=== PATIENT | female | born 1985 | race Caucasian/White ===

== ENCOUNTER → 2019-05-31 14:56 | Day surgery (SDC) | payer SELFPAY ==
[2019-05-31 09:06] LABS: Absolute Lymphocytes (CBC) 3.1 K/uL (0.7-4.9); Hematocrit 39.8 % (36.0-45.0); Lymphocytes % 46.2 % (15.3-44.8); MPV 9.9 fL (7.6-11.3); RBC Red Blood Cell Count 4.43 M/uL (3.86-4.86)
[2019-05-31 09:07] LABS: BUN Blood Urea Nitrogen 10 mg/dL (7-18); Bicarbonate 30 mmol/L (21-32); Glucose Level 100 mg/dL (74-106); Potassium 4.1 mmol/L (3.5-5.1); Sodium Level 141 mmol/L (136-145)
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
[2019-05-31 12:50] LABS: Urine Blood NEGATIVE (NEG); Urine Glucose NEGATIVE (NEG); Urine Protein NEGATIVE (NEG); Urine Specific Gravity 1.015 (1.005-1.030)
[2019-05-31 14:40] VITALS: BP 101/52; TEMP 98.4; O2SAT 99
[~2019-05-31 14:56] MED LIST: CEFAZOLIN/SWI 1gm 1 GM/10 ML SYR ONE; FENTANYL CITR 100 MCG/2 ML ONE; KETOROLAC 30 MG/ML INJ ONE; LIDOCAINE 1% MPF 5 ML VIAL ONE; LIDOCAINE 1% W/EPI 1:100,000 MDV 20 ML VIAL ONE; LIDOCAINE 2% MPF 5 ML VIAL ONE; MEPERIDINE HCL 25 MG/0.5 ML ONE; MIDAZOLAM HCL 2 MG/2 ML INJ ONE; NA CHLORIDE 0.9% 1,000 ML ONE; NA CIT/CITRIC AC 30 ML ORAL UDC ONE; ONDANSETRON 4 MG/2 ML VIAL ONE; PROPOFOL 200 MG/20 ML VIAL IV ONE
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
== END | disposition home or self-care (01) ==
LOC: ER 08:21 → OR 14:55 → EDSTATUS 16:03
PROVIDERS: ATTEND Emergency Medicine
PROC: 0JQ13ZZ Repair Face Subcutaneous Tissue and Fascia, Percutaneous Approach (ICD-10-PCS; principal; 2019-05-31 12:00)
DX: S01.122A Laceration with foreign body of left eyelid and periocular area, initial encounter (principal); S01.82XA Laceration with foreign body of other part of head, initial encounter; V49.9XXA Car occupant (driver) (passenger) injured in unspecified traffic accident, initial encounter; Y92.410 Unspecified street and highway as the place of occurrence of the external cause; F17.210 Nicotine dependence, cigarettes, uncomplicated
CPT/HCPCS: 36415; 70450; 80048; 81003; 81025; 85025; 96374; 96375; 99285; J0690; J2175; J2250; J2405; J2704; J3010; J7030

== ENCOUNTER 2024-04-08 12:25 | Emergency (ER) | payer SELFPAY ==
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
[2024-04-08 15:42] VITALS: BP 128/83; TEMP 97.3; O2SAT 99
== END 2024-04-08 14:09 | disposition home or self-care (01) ==
LOC: ER 12:25
DX: T76.21XA Adult sexual abuse, suspected, initial encounter (principal)

== ENCOUNTER 2024-04-30 11:41 | Emergency (ER) | payer SELFPAY ==
--- NOTE | 2024-04-30 12:36 | ER ---
Nurse's Notes [facility] Name: Ping Amaya Age: 38 yrs Sex: Female : 1985 Arrival Date: 04/30/2024 Time: 11:41 Bed 9 Private MD: Diagnosis: Chest pain, lipoma Presentation: 04/30 11:55 Chief complaint: Patient states: I have a mass in my chest and it's causing a lot of iw pain and it's hard to use my left arm and my lower back and hip are hurting , and I have a bacterial vaginal infection since october , was seen at a hospital 14 months ago and that's when they did an xray. Coronavirus screen: At this time, the client does not indicate any symptoms associated with coronavirus-19. Initial Sepsis Screen: Does the patient meet any 2 criteria? No. Patient's initial sepsis screen is negative. Does the patient have a suspected source of infection? No. Patient's initial sepsis screen is negative. Risk Assessment: Do you want to hurt yourself or someone else? Patient reports no desire to harm self or others. 11:55 Method Of Arrival: Ambulatory iw 11:55 Acuity: LAKSHMI 3 iw 13:02 Ebola Screen: Patient denies travel to an Ebola-affected area in the 21 days before ll1 illness onset. Onset of symptoms was April 30, 2024. 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 - Infectious Disease History:: Denies. - Social history:: Smoking status: Patient reports the use of cigarette tobacco products. Screenin:29 [facility] ED Fall Risk Assessment (Adult) History of falling in the last 3 months, ll1 including since admission No falls in past 3 months (0 pts) Confusion or Disorientation No (0 pts) Intoxicated or Sedated No (0 pts) Impaired Gait No (0 pts) Mobility Assist Device Used Yes (1 pt) Altered Elimination No (0 pt) Score/Fall Risk Level 0 - 2 = Low Risk Maintained a safe environment, Hourly rounding (assess needs \T\ fall precautionary measures) done. Abuse screen: Denies threats or abuse. Nutritional screening: No deficits noted. Tuberculosis screening: No symptoms or risk factors identified. Assessment: 12:28 General: Appears uncomfortable, Behavior is calm, cooperative, appropriate for age. ll1 Pain: Complains of pain in L side of body Quality of pain is described as aching. Cardiovascular: Reports chest pain. Musculoskeletal: Reports pain in L side of body. 13:02 Reassessment: No changes from previously documented assessment. Patient and/or family ll1 updated on plan of care and expected duration. Pain level reassessed. Patient is alert, oriented x 3, equal unlabored respirations, skin warm/dry/pink. 13:03 Pain: Pain does not radiate. Pain began 2 hours ago. ll1 Vital Signs: 11:57 BP 137 / 79; Pulse 95; Resp 16; Temp 97.9; Pulse Ox 98% on R/A; Pain 6/10; iw 13:02 BP 119 / 67; Pulse 83; Resp 17; Pulse Ox 98% on R/A; ll1 11:57 Pain Scale: Adult iw ED Course: 11:45 Patient arrived in ED. sj2 11:57 Triage completed. iw 11:58 Arm band placed on. iw 12:06 Cj Viveros MD is Attending Physician. sp3 12:12 Jorje Mcnamara, CRISTELA is Primary Nurse. ll1 12:12 Patient placed in an exam room, on a stretcher. ll1 12:29 XRAY Chest (1 view) Sent. ll1 12:30 Patient has correct armband on for positive identification. Bed in low position. ll1 Provided Education on: ER procedures and process. Cardiac monitoring not applicable on this patient. 12:35 XRAY Chest (1 view) In Process Unspecified. EDMS 13:02 No provider procedures requiring assistance completed. Patient did not have IV access ll1 during this emergency room visit. Patient maintains SpO2 saturation greater than 95% on room air. Administered Medications: No medications were administered Medication: 13:03 VIS not applicable for this client. ll1 Outcome: 12:36 Discharge ordered by . sp3 13:02 Discharged to home ambulatory, ll1 13:02 Condition: stable 13:02 Discharge instructions given to patient, Instructed on discharge instructions, follow up and referral plans. Demonstrated understanding of instructions, follow-up care, 13:03 Patient left the ED. ll1 Signatures: Dispatcher [employer] Baylee Curtis RN RN iw Lewis, Lynsay, RN RN ll1 Cj Viveros MD MD sp3 Gilberto Montez2
--- NOTE | 2024-04-30 12:36 | EDPHYS ---
Physician Documentation [facility] Name: Ping Amaya Age: 38 yrs Sex: Female : 1985 Arrival Date: 04/30/2024 Time: 11:41 Bed 9 Private MD: ED Physician Cj Viveros HPI: 04/30 12:23 This 38 yrs old Female presents to ER via Ambulatory with complaints of Chest Pain, Arm sp3 Pain. 12:23 38-year-old female with history of seasonal allergies presents with sharp chest pain on sp3 and off for a week. Patient states that she was in the ICU admitted and then checked herself out and she cannot communicate as to why she was admitted. She then states that she had "a mass on her back that needed to be ultrasounded" but she left prior to that being looked at. This was over a month ago. She denies any shortness of breath, fever, cough, abdominal pain, low back pain, syncope, near syncope, bleeding, or any other signs or symptoms on ROS at this time.. 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 - Infectious Disease History:: Denies. - Social history:: Smoking status: Patient reports the use of cigarette tobacco products. ROS: 12:24 Constitutional: Negative for fever, chills, and weight loss, Eyes: Negative for injury, sp3 pain, redness, and discharge, ENT: Negative for injury, pain, and discharge, Neck: Negative for injury, pain, and swelling, Respiratory: Negative for shortness of breath, cough, wheezing, and pleuritic chest pain, Abdomen/GI: Negative for abdominal pain, nausea, vomiting, diarrhea, and constipation, MS/Extremity: Negative for injury and deformity, Skin: Negative for injury, rash, and discoloration, Neuro: Negative for headache, weakness, numbness, tingling, and seizure, Psych: Negative for depression, anxiety, suicide ideation, homicidal ideation, and hallucinations, Allergy/Immunology: Negative for hives, rash, and allergies, Endocrine: Negative for neck swelling, polydipsia, polyuria, polyphagia, and marked weight changes, Hematologic/Lymphatic: Negative for swollen nodes, abnormal bleeding, and unusual bruising, 12:24 All other systems are negative, Exam: 12:25 Constitutional: This is a well developed, well nourished patient who is awake, alert, sp3 and in no acute distress. Head/Face: Normocephalic, atraumatic. Eyes: Pupils equal round and reactive to light, extra-ocular motions intact. Lids and lashes normal. Conjunctiva and sclera are non-icteric and not injected. Cornea within normal limits. Periorbital areas with no swelling, redness, or edema. Neck: Trachea midline, no thyromegaly or masses palpated, and no cervical lymphadenopathy. Supple, full range of motion without nuchal rigidity, or vertebral point tenderness. No Meningismus. Chest/axilla: Normal chest wall appearance and motion. Nontender with no deformity. No lesions are appreciated. Cardiovascular: Regular rate and rhythm with a normal S1 and S2. No gallops, murmurs, or rubs. Normal PMI, no JVD. No pulse deficits. Respiratory: Lungs have equal breath sounds bilaterally, clear to auscultation and percussion. No rales, rhonchi or wheezes noted. No increased work of breathing, no retractions or nasal flaring. Abdomen/GI: Soft, non-tender, with normal bowel sounds. No distension or tympany. No guarding or rebound. No evidence of tenderness throughout. Skin: Warm, dry with normal turgor. Normal color with no rashes, no lesions, and no evidence of cellulitis. MS/ Extremity: Pulses equal, no cyanosis. Neurovascular intact. Full, normal range of motion. Neuro: Awake and alert, GCS 15, oriented to person, place, time, and situation. Cranial nerves II-XII grossly intact. Motor strength 5/5 in all extremities. Sensory grossly intact. Cerebellar exam normal. Normal gait. Psych: Awake, alert, with orientation to person, place and time. Behavior, mood, and affect are within normal limits. 12:25 Back: Possible small swelling lateral to the spine consistent with lipoma. Nonpainful., 12:34 ECG was reviewed by the Attending Physician. EKG demonstrates normal sinus rhythm at 82 sp3 bpm with normal intervals, normal QRS, normal axis, normal ST's ST segments without evidence of acute ischemia. Vital Signs: 11:57 BP 137 / 79; Pulse 95; Resp 16; Temp 97.9; Pulse Ox 98% on R/A; Pain 6/10; iw 13:02 BP 119 / 67; Pulse 83; Resp 17; Pulse Ox 98% on R/A; ll1 11:57 Pain Scale: Adult iw MDM: 12:06 Medical Screening Exam initiated sp3 12:27 Data reviewed: vital signs, nurses notes, EKG, radiologic studies. ED course: sp3 30-year-old female with chest pain and possible lipoma on her back. Patient is in no acute distress resting comfortably and vital signs are normal. I believe pain is musculoskeletal in origin I am not highly suspicious for ACS, PE, TAD, GI symptoms, or any other critical pathology. Will obtain chest x-ray and EKG to affirm. If negative patient can follow-up with her PCP regarding possible lipoma workup as there is no emergency currently if workup is negative.. 12:35 ED course: EKG and chest x-ray are normal. We will safely discharge patient home at 3 this time.. 04/30 12:07 Order name: XRAY Chest (1 view); Complete Time: 12:47 sp3 04/30 12:07 Order name: EKG; Complete Time: 12:07 sp3 04/30 12:07 Order name: EKG - Nurse/Tech; Complete Time: 12:29 sp3 Administered Medications: No medications were administered Disposition Summary: 04/30/24 12:36 Discharge Ordered Notes: Location: Home sp3 Condition: Stable sp3 Diagnosis - Chest pain, lipoma sp3 Followup: sp3 - With: Private Physician - When: Upon discharge from the Emergency Department - Reason: Continuance of care Discharge Instructions: - Discharge Summary Sheet sp3 - Nonspecific Chest Pain, Adult sp3 - Lipoma sp3 Forms: - Medication Reconciliation Form sp3 - Antibiotic Education sp3 - Prescription Opioid Use sp3 - Patient Portal Instructions sp3 - Leadership Thank You Letter sp3 Signatures: Dispatcher [employer] EDBaylee Guidry RN RN iw Viveros, Setul, MD MD sp3
--- NOTE | 2024-04-30 12:45 | RAD REPORT ---
EXAMINATION: ONE VIEW CHEST XR CLINICAL INDICATION: Female, 38 years old.CHEST PAIN TECHNIQUE: 1 View, AP supine, X-ray of the chest was performed. [id number]. COMPARISON: 03/20/2024 FINDINGS: Lungs and pleura: Clear lungs. No effusion. Heart and mediastinum: Normal heart size. Unremarkable mediastinal contours. Osseous structures: No acute abnormality. Tubes/lines: None Other: None. IMPRESSION: No acute intrathoracic abnormality.
[2024-04-30 13:45] VITALS: TEMP 97.9; O2SAT 98
[2024-04-30 13:49] VITALS: BP 119/67
--- NOTE | 2024-05-01 12:14 | EKG ---
Test Date: 2024-04-30 Test Time: 12:26:59 Dog Handler Or Trainer: LML MEASUREMENT RESULTS: Intervals: Rate: 82 MI: 110 QRSD: 82 QT: 346 QTc: 404 [place]: P: 70 MI: 110 QRS: 70 T: 56 INTERPRETIVE STATEMENTS: Sinus rhythm with short MI Otherwise normal ECG Compared to ECG 03/19/2023 23:44:47 Short MI interval now present Sinus tachycardia no longer present ST (T wave) deviation no longer present Electronically Signed On 05-01-24 12:13:07 TELECOMMUNICATIONS ENGINEER by Hipolito Us
== END 2024-04-30 13:03 | disposition home or self-care (01) ==
LOC: ER 11:41
DX: R07.9 Chest pain, unspecified (principal); D17.1 Benign lipomatous neoplasm of skin and subcutaneous tissue of trunk
CPT/HCPCS: 71045; 93005; 99282

== ENCOUNTER 2024-06-23 19:02 | Emergency (ER) | payer SELFPAY ==
[2024-06-23 19:56] LABS: Specific Gravity 1.007 (1.005-1.030)
[2024-06-23 19:59] LABS: Specific Gravity 1.007 (1.005-1.030); Sqamous Epithelial <5 /HPF (None Seen); Urine Bacteria <20 /HPF (<20); Urine Bilirubin NEGATIVE (Negative); Urine Blood Negative (Negative); Urine Clarity Turbid (Clear); Urine Color Colorless (Yellow); Urine Culture Reflex Order NOT NEEDED; Urine Glucose NEGATIVE (Negative); Urine Ketones NEGATIVE (Negative); Urine Microscopic Reflex YN ORDER UMIC; Urine Mucus Slight /HPF (None Seen); Urine Nitrite NEGATIVE (Negative); Urine Protein NEGATIVE (Negative); Urine RBC <5 /HPF (None Seen); Urine Urobilinogen Normal (Normal); Urine WBC <5 /HPF (<5); Urine pH 5.5 (5.0-7.0)
[2024-06-23 20:06] LABS: Barbiturates NEGATIVE (NEGATIVE); Benzodiazepines NEGATIVE (NEGATIVE); Cocaine NEGATIVE (NEGATIVE); METHAMPHETAM NEGATIVE (NEGATIVE); Methadone NEGATIVE (NEGATIVE); Opiates NEGATIVE (NEGATIVE); Phencyclidine NEGATIVE (NEGATIVE); THC Cannibis NEGATIVE (NEGATIVE)
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
[2024-06-23] MEDS ORDERED: CEFTRIAXONE 500 MG/VIAL ONE (22:29)
[2024-06-23] MEDS ORDERED: WATER FOR INJ,STERILE 10 ML ONE (22:30)
[2024-06-23] MEDS ORDERED: ONDANSETRON 4 MG (ODT) TAB ONE (22:30)
[2024-06-23] MEDS ORDERED: AZITHROMYCIN 250 MG TAB ONE (22:30)
[2024-06-23] MEDS ORDERED: metroNIDAZOLE 500 MG TABLET ONE (22:30)
[2024-06-23 23:10] VITALS: BP 108/84; TEMP 98.4; O2SAT 97
== END 2024-06-23 22:45 | disposition home or self-care (01) ==
LOC: ER 19:02
DX: T76.21XA Adult sexual abuse, suspected, initial encounter (principal)
CPT/HCPCS: 80307; 81001; 81025; 96372; 99284; Q0162